=== PATIENT | female | born 2000 | race Two or more races ===

== ENCOUNTER 2021-12-11 10:26 | Day surgery (SDC) | payer OTHER ==
[2021-12-07 13:49] VITALS: BMI 25.2
[2021-12-11] MEDS ORDERED: PROPOFOL 20 ML ONE ×2 (10:40→12:19)
[2021-12-11] MEDS ORDERED: DEXAMETHASONE SOD PHOSPHATE 4 MG/1 ML VIAL ONE (10:40)
[2021-12-11] MEDS ORDERED: ONDANSETRON 4 MG/2 ML VIAL ONE (10:40)
[2021-12-11] MEDS ORDERED: ROCURONIUM BROMIDE 50 MG/5 ML SYRINGE ONE ×3 (10:41→15:38)
[2021-12-11] MEDS ORDERED: MIDAZOLAM HCL 2 MG/2 ML SINGLE DOSE VIAL ONE ×2 (11:08)
[2021-12-11] MEDS ORDERED: OXYMETAZOLINE 0.05% NASAL SOLUTION 15 ML BOTTLE NS ONE (11:27)
[2021-12-11] MEDS ORDERED: LIDOCAINE HCL/EPINEPHRINE/PF 20 ML VIAL ONE ×2 (11:28→13:12)
[2021-12-11] MEDS ORDERED: NITROGLYCERIN 2% OINTMENT - 1GM PACKET TD ONE (11:28)
[2021-12-11] MEDS ORDERED: LIDOCAINE HCL 1%, 10 MG/ML (20ML VIAL) ONE (12:52)
[2021-12-11] MEDS ORDERED: EPINEPHrine/PF 1 MG/1 ML (1:1,000) AMPULE ONE (12:52)
[2021-12-11] MEDS ORDERED: SODIUM CHLORIDE 0.9% P/F 10 ML VIAL IJ ONE (13:13)
[2021-12-11] MEDS ORDERED: ONDANSETRON 4 MG/2 ML VIAL IVPUSH PRN (14:19)
[2021-12-11] MEDS ORDERED: PROMETHAZINE HCL 25 MG/1 ML VIAL IVPUSH PRN (14:19)
[2021-12-11] MEDS ORDERED: oxyCODONE HCL 5 MG TABLET PO PRN ×3 (14:19→17:26)
[2021-12-11] MEDS ORDERED: LACTATED RINGERS SOLUTION 1,000 ML IV SCH ×2 (14:30→17:30)
[2021-12-11] MEDS ORDERED: NEOSTIGMINE METHYLSULFATE 0.5 MG/1 ML - 10 ML MDV ONE (16:39)
[2021-12-11] MEDS ORDERED: BACITRACIN 15 GM TUBE TOPICAL OINTMENT ONE (16:56)
[2021-12-11] MEDS ORDERED: BSS (NA/CA/MG/K) BALANCED SALT SOLUTION OPHTH SOLN 15 ML BOTTLE ONE (17:06)
[2021-12-11] MEDS ORDERED: ONDANSETRON 4 MG/2 ML VIAL IVPB PRN (17:26)
[2021-12-11] MEDS ORDERED: PROMETHAZINE HCL 25 MG/1 ML VIAL ONE (17:30)
[2021-12-11] MEDS ORDERED: ACETAMINOPHEN 1000 MG/100 ML BAG IVPB ONE (17:32)
[2021-12-11] MEDS ORDERED: ACETAMINOPHEN INJECTION 100 ML IVPB ONE (18:15)
[2021-12-11 18:36] VITALS: TEMP 98.2
[2021-12-11 19:25] VITALS: BP 118/65; PULSE 87
== END 2021-12-11 19:25 | disposition home or self-care (01) ==
LOC: FASU 10:26 → EDBD 12:00 → FASU 19:25
PROVIDERS: ATTEND Plastic Surgery
PROC: 09SL0ZZ Reposition Nasal Turbinate, Open Approach (ICD-10-PCS; 2021-12-11)
PROC: 09UK07Z Supplement Nasal Mucosa and Soft Tissue with Autologous Tissue Substitute, Open Approach (ICD-10-PCS; principal; 2021-12-11 13:25)
DX: M95.0 Acquired deformity of nose (principal)
CPT/HCPCS: 84703; 94760